=== PATIENT | female | born 1980 | race Caucasian/White ===

== ENCOUNTER 2018-11-04 11:24 | Inpatient (IN) | payer MEDICAID ==
[2018-11-04] MEDS ORDERED: LIDOCAINE 1% (MPF) 30 ML INJ INJ (12:00)
[2018-11-04] MEDS ORDERED: OXYTOCIN 30 UNITS/LR 500 ML IV ×2 (12:00)
[2018-11-04] MEDS ORDERED: MISOPROSTOL 200 MCG TAB PR (12:00)
[2018-11-04] MEDS ORDERED: BUTORPHANOL 2 MG INJ IV ×2 (12:00→13:00)
[2018-11-04] MEDS ORDERED: METHYLERGONOVINE 0.2 MG INJ IM (12:00)
[2018-11-04] MEDS ORDERED: CARBOPROST 250 MCG INJ IM (12:00)
[2018-11-04 12:15] LABS: ADD MAN DIFF? NO
[2018-11-04 12:28] LABS: BASOPHILS % 0.3 % (0.0-2.0); EOSINOPHILS # 0.1 10^3/ul (0.0-0.5); EOSINOPHILS % 0.6 % (0.0-7.0); HEMATOCRIT 35.8 % (37.0-47.0); HEMOGLOBIN 12.2 g/dl (12.0-16.0); LYMPHOCYTES # 1.6 10^3/ul (0.8-2.9); LYMPHOCYTES % 20.3 % (15.0-51.0); MEAN CORPUSCULAR HEMOGLOBIN 29.1 pg (29.0-33.0); MEAN CORPUSCULAR HGB CONC 34.1 g/dl (32.0-37.0); MEAN CORPUSCULAR VOLUME 85.4 fl (82.0-101.0); MEAN PLATELET VOLUME 12.2 fl (7.4-10.4); MONOCYTE # 0.6 10^3/ul (0.3-0.9); MONOCYTES % 8.1 % (0.0-11.0); NEUTROPHIL # 5.5 10^3/ul (1.6-7.5); NEUTROPHILS % 70.1 % (39.0-77.0); PLATELET COUNT 227 10^3/UL (140-415); RED BLOOD COUNT 4.19 10^6/ul (4.20-5.40); RED CELL DISTRIBUTION WIDTH 14.5 % (11.5-14.5)
[2018-11-04 12:28] LABS: WHITE BLOOD COUNT 7.9 10^3/ul (4.8-10.8)
[2018-11-04 12:35] LABS: INR 0.93; PROTIME 12.6 Sec (11.9-14.9)
[2018-11-04 12:36] LABS: PARTIAL THROMBOPLASTIN TIME 27.5 Sec (23.0-35.0)
[2018-11-04] MEDS ORDERED: BUTORPHANOL 1 MG INJ IV (13:00)
[2018-11-04] MEDS: OXYTOCIN 30 UNITS/LR 500 ML IV (13:10)
[2018-11-04] MEDS: LACTATED RINGER'S 1,000 ML IV ×2 (14:29→16:15)
[2018-11-04 14:57] LABS: RAPID PLASMA REAGIN NONREACTIVE (NR)
[2018-11-04 16:32] LABS: ADD UMIC YES; UR ASCORBIC ACID NEGATIVE (NEGATIVE); UR BACTERIA FEW /HPF (NONE SEEN); UR BILIRUBIN (Dip) NEGATIVE (NEGATIVE); UR BLOOD (Dip) NEGATIVE (NEGATIVE); UR CLARITY CLOUDY (CLEAR); UR COLOR YELLOW (YELLOW); UR GLUCOSE (Dip) NEGATIVE (NEGATIVE); UR KETONES (Dip) NEGATIVE (NEGATIVE); UR LEUKOCYTE ESTERASE (Dip) 3+ Leu/ul (NEGATIVE); UR NITRITE (Dip) NEGATIVE (NEGATIVE); UR RBC 1 /HPF (0-5); UR SPECIFIC GRAVITY (Dip) 1.012 (1.003-1.030); UR SQUAMOUS EPITHELIAL CELL MANY /HPF (FEW); UR TOTAL PROTEIN (Dip) NEGATIVE (NEGATIVE); UR UROBILINOGEN (Dip) NEGATIVE (NEGATIVE); UR WBC 15 /HPF (0-5)
[2018-11-05] MEDS: LACTATED RINGER'S 1,000 ML IV ×5 (00:47→08:24)
[2018-11-05] MEDS ORDERED: HYDROmorphONE 0.5 MG/0.5 ML SYG IV ×2 (05:00)
[2018-11-05] MEDS ORDERED: DIPHENHYDRAMINE 50 MG INJ IV ×2 (05:00→12:30)
[2018-11-05] MEDS ORDERED: ZOLPIDEM 5 MG TAB PO ×2 (05:00→21:00)
[2018-11-05] MEDS ORDERED: NALOXONE (0.4 MG/ML) INJ IV (05:00)
[2018-11-05] MEDS ORDERED: HYDROCODONE/APAP (5/325) TAB PO ×2 (05:00→12:30)
[2018-11-05] MEDS ORDERED: FENTAnyl 2MCG/ML-ROPIV 0.2% 100 ML BAG EPI (05:00)
[2018-11-05] MEDS ORDERED: KETOROLAC 30 MG INJ IV (05:00)
[2018-11-05] MEDS ORDERED: ONDANSETRON 4 MG INJ IV ×2 (05:00→12:30)
[2018-11-05] MEDS ORDERED: EPHEDrine SULFATE 50 MG/5 ML SYG IV (06:30)
[2018-11-05] MEDS: IBUPROFEN 600 MG TAB PO ×2 (12:00→17:41)
[2018-11-05] MEDS: OXYTOCIN 30 UNITS/LR 500 ML IV (12:19)
[2018-11-05 12:25] LABS: AADO2 Cord Arterial 71.9 mmHg; Arterial Cord Blood pCO2 42.7 mmHG (25-50); CBA Base Excess -1.7 mmol/L; CBA COHb 0.9 %; CBA Oxygen Sat 65.9 mmHG; CBA Total Hemglobin 16.4 g/dl; Cord Blood Arterial pO2 26.7 mmHG (15.0-45.0); Fraction OxyHgb Cord Arterial 64.6 %; MODE ROOM AIR; Site CORD
[2018-11-05 12:30] LABS: CBV Base Excess -3.5 mmol/L; CBV COHb 1.3 %; CBV Oxygen Sat 77.1 mmHG; CBV Total Hemglobin 16.5 g/dl; Cord Blood Venous AADO2 76.1 mmHg; Cord Blood Venous pO2 30.5 mmHG (15.0-45.0); Fraction OxyHgb Cord Venous 75.5 %; MODE ROOM AIR; MetHgb Cord Venous 0.8 %; Sample Type Blood venous; Site CORD
[2018-11-05] MEDS ORDERED: OXYTOCIN 30 UNITS/LR 500 ML IV (12:30)
[2018-11-05] MEDS ORDERED: DIPHENHYDRAMINE 25 MG CAP PO (12:30)
[2018-11-05] MEDS ORDERED: SENNA/DOCUSATE NA (8.6MG/50MG) TAB PO (12:30)
[2018-11-05] MEDS ORDERED: NA PHOSPHATE/BIPHOS 133 ML ENEMA PR (12:30)
[2018-11-05] MEDS ORDERED: CARBOPROST 250 MCG INJ IM (12:30)
[2018-11-05] MEDS ORDERED: MAGNESIUM HYDROXIDE 30ML CUP PO (12:30)
[2018-11-05] MEDS ORDERED: MISOPROSTOL 200 MCG TAB PR (12:30)
[2018-11-05] MEDS ORDERED: ONDANSETRON 4 MG TAB PO (12:30)
[2018-11-05] MEDS ORDERED: DIBUCAINE 1% 30 GM OINT TOP (12:30)
[2018-11-05] MEDS: HYDROCODONE/APAP (5/325) TAB PO (13:34)
[2018-11-05] MEDS: LACTATED RINGER'S 1,000 ML IV* (14:42)
[2018-11-05] MEDS: WITCH HAZEL/GLYCERIN PAD PR (17:41)
[2018-11-05] MEDS: LANOLIN HPA 1 PKT TOP (17:42)
[2018-11-05] MEDS: BENZOCAINE 20% 56 ML SPRAY TOP (17:42)
[2018-11-05] MEDS: SENNA/DOCUSATE NA (8.6MG/50MG) TAB PO (21:59)
[2018-11-06] MEDS: IBUPROFEN 600 MG TAB PO ×5 (00:25→23:32)
[2018-11-06 08:50] LABS: ADD MAN DIFF? NO
[2018-11-06 08:54] LABS: WHITE BLOOD COUNT 13.1 10^3/ul (4.8-10.8)
[2018-11-06 08:54] LABS: BASOPHILS % 0.3 % (0.0-2.0); EOSINOPHILS # 0.1 10^3/ul (0.0-0.5); EOSINOPHILS % 0.6 % (0.0-7.0); HEMATOCRIT 33.5 % (37.0-47.0); LYMPHOCYTES # 2.4 10^3/ul (0.8-2.9); LYMPHOCYTES % 18.2 % (15.0-51.0); MEAN CORPUSCULAR HEMOGLOBIN 28.6 pg (29.0-33.0); MEAN CORPUSCULAR HGB CONC 32.8 g/dl (32.0-37.0); MEAN PLATELET VOLUME 12.1 fl (7.4-10.4); MONOCYTES % 7.3 % (0.0-11.0); NEUTROPHIL # 9.5 10^3/ul (1.6-7.5); PLATELET COUNT 194 10^3/UL (140-415); RED BLOOD COUNT 3.85 10^6/ul (4.20-5.40); RED CELL DISTRIBUTION WIDTH 14.9 % (11.5-14.5)
[2018-11-06] MEDS: SENNA/DOCUSATE NA (8.6MG/50MG) TAB PO ×2 (10:05→20:55)
[2018-11-06 20:11] LABS: HEPATITIS B SURFACE ANTIGEN NEGATIVE (NEGATIVE)
[2018-11-07] MEDS: IBUPROFEN 600 MG TAB PO ×2 (05:41→12:20)
[2018-11-07] MEDS: DIPHTH/TET/ACEL PERTUSS (ADULT) 0.5 ML VIAL IM* (09:00)
[2018-11-07] MEDS: VARICELLA VACCINE LIVE/PF 1,350 UNIT/0.5 ML ML SC* (09:00)
[2018-11-07] MEDS: SENNA/DOCUSATE NA (8.6MG/50MG) TAB PO (09:21)
[2018-11-07] MEDS: MEASLES,MUMPS,RUBELLA VACCINE INJ SC* (09:21)
[2018-11-08] MEDS ORDERED: IBUPROFEN 600 MG TAB PO (12:00)
== END 2018-11-07 15:29 | disposition home or self-care (01) | DRG 807 ==
LOC: PP1 11-05 13:50 → L-D 11:24
PROVIDERS: Specialist
PROC: 3E033VJ Introduction of Other Hormone into Peripheral Vein, Percutaneous Approach (ICD-10-PCS; 2018-11-04)
PROC: 10E0XZZ Delivery of Products of Conception, External Approach (ICD-10-PCS; principal; 2018-11-05)
PROC: 0HQ9XZZ Repair Perineum Skin, External Approach (ICD-10-PCS; 2018-11-05)
DX: O41.03X0 Oligohydramnios, third trimester, not applicable or unspecified (principal); Z37.0 Single live birth; O70.0 First degree perineal laceration during delivery; O69.81X0 Labor and delivery complicated by cord around neck, without compression, not applicable or unspecified; Z3A.40 40 weeks gestation of pregnancy
CPT/HCPCS: 36415; 36600; 76816; 81001; 82803; 85025; 85610; 85730; 86592; 86850; 86900; 86901; 87340; 90716; 99464